=== PATIENT | male | born 1940 | race Caucasian/White ===

== ENCOUNTER 2018-09-07 09:25 | Emergency (ER) | payer MEDICARE ==
[~2018-09-07] VITALS: Ht 170.2 cm; Wt 70.2 kg
[2018-09-07 10:00] VITALS: Ht 170.2 cm; Wt 70.2 kg
[2018-09-07] MEDS ORDERED: DEXAMETHASONE 4 MG/ML 1 ML INJ IV ONE (11:00)
[2018-09-07] MEDS ORDERED: DIPHENHYDRAMINE 50 MG INJ IV ONE (11:00)
[2018-09-07] MEDS ORDERED: METOCLOPRAMIDE 10 MG INJ IV ONE (11:00)
--- NOTE | 2018-09-07 12:16 | ERD ---
ER Documentation Chief Complaint Chief Complaint C/O HEADACHE, DIZZINESS FOR A WEEK, LAST NIGHT HEAVY NOSE BLEED HPI This is a 77-year-old male presents to the ER for evaluation of a headache and slight dizziness for 1 week. The patient states that he did have a nosebleed last night. The patient denies being on any medications denies being on any blood thinners denies any chest pain or shortness of breath or nausea or vomiting and came to the emergency room today for evaluation of his symptoms. The patient states that he is not had any bleeding since he woke up this morning. ROS All systems reviewed and are negative except as per history of present illness. Medications Home Meds No Active Prescriptions or Reported Meds Allergies Allergies: Coded Allergies: No Known Allergy (Unverified , 09/07/18) PMhx/Soc Medical and Surgical Hx: pt denies Medical Hx History of Surgery: Yes (FOOT) Anesthesia Reaction: No Hx Neurological Disorder: No Hx Respiratory Disorders: No Hx Cardiac Disorders: No Hx Psychiatric Problems: No Hx Miscellaneous Medical Probl: No Hx Alcohol Use: No Hx Substance Use: No Hx Tobacco Use: No Smoking Status: Never smoker Physical Exam Vitals Vital Signs Date Temp Pulse Resp B/P (MAP) Pulse Ox O2 O2 Flow FiO2 Time Delivery Rate 09/07/18 98.6 64 18 121/63 98 10:00 (82) Physical Exam Const: No acute distress Head: Atraumatic Eyes: Normal Conjunctiva ENT: Normal External Ears, Nose and Mouth. Neck: Full range of motion. No meningismus. Resp: Clear to auscultation bilaterally Cardio: Regular rate and rhythm, no murmurs Abd: Soft, non tender, non distended. Normal bowel sounds Skin: No petechiae or rashes Back: No midline or flank tenderness Ext: No cyanosis, or edema Neur: Awake and alert Psych: Normal Mood and Affect Result Diagram: 09/07/18 1121 09/07/18 1121 Results 24 hrs Laboratory Tests Test 09/07/18 11:21 White Blood Count 5.5 10^3/ul Red Blood Count 5.02 10^6/ul Hemoglobin 15.7 g/dl Hematocrit 46.5 % Mean Corpuscular Volume 92.6 fl Mean Corpuscular Hemoglobin 31.3 pg Mean Corpuscular Hemoglobin Concent 33.8 g/dl Red Cell Distribution Width 13.7 % Platelet Count 264 10^3/UL Mean Platelet Volume 9.7 fl Immature Granulocytes % 0.200 % Neutrophils % 61.5 % Lymphocytes % 27.3 % Monocytes % 8.4 % Eosinophils % 2.0 % Basophils % 0.6 % Nucleated Red Blood Cells % 0.0 /100WBC Immature Granulocytes # 0.010 10^3/ul Neutrophils # 3.4 10^3/ul Lymphocytes # 1.5 10^3/ul Monocytes # 0.5 10^3/ul Eosinophils # 0.1 10^3/ul Basophils # 0.0 10^3/ul Nucleated Red Blood Cells # 0.0 10^3/ul Prothrombin Time 13.1 Sec Prothrombin Time Ratio 1.0 INR International Normalized Ratio 0.98 Activated Partial Thromboplast Time 28.8 Sec Sodium Level 142 mmol/L Potassium Level 4.0 mmol/L Chloride Level 109 mmol/L Carbon Dioxide Level 27 mmol/L Anion Gap 6 Blood Urea Nitrogen 16 mg/dl Creatinine 0.75 mg/dl Est Glomerular Filtrat Rate mL/min mL/min Glucose Level 103 mg/dl Calcium Level 9.6 mg/dl Troponin I < 0.012 ng/ml Current Medications Medications Dose Sig/Patricio Start Time Status Last (Trade) Ordered Route PRN Stop Time Admin Dose Reason Admin 5 mg ONCE ONCE 09/07/18 DC 09/07/18 Metoclopramid IV 11:00 11:18 e HCl 09/07/18 11:01 (Reglan) 4 mg ONCE ONCE 09/07/18 DC 09/07/18 Dexamethasone IV 11:00 11:18 (Decadron) 09/07/18 11:01 25 mg ONCE ONCE 09/07/18 DC 09/07/18 Diphenhydrami IV 11:00 11:18 ne HCl 09/07/18 11:01 (Benadryl) Procedures/MDM CT brain without: No acute abnormality EKG: Rate/Rhythm: [Normal Sinus Rhythm] QRS, ST, T-waves: [No changes consistent w/ acute ischemia] Impression: [No evidence of ischemia or arrhythmia] This 77-year-old male presents to the ER for evaluation of a headache and slight dizziness for 1 week. On my exam the patient is alert and oriented to person place and time, he has no focal neurological deficits, is ambulate without difficulty and stable. The patient's CT the brain is normal shows no signs of intraconal hemorrhage or no signs of severe sinus infection. This patient's lab work is within normal limits including an EKG and troponin. The patient was advised that he can follow-up as an outpatient given his hemodynamic stability. The patient will be discharged with a referral for outpatient ENT and strict return precautions. The patient does feel comfortable with the plan of care and will be discharged. Departure Diagnosis: Primary Impression: Headache Additional Impression: Epistaxis Condition: Stable GABE CALDERON DO Sep 07, 2018 12:16
[2018-09-07 13:44] VITALS: BP 109/60; PULSE 58; RESP 20
== END 2018-09-07 13:46 | disposition home or self-care (01) ==
LOC: E/R 09:25
DX: R51 Headache (principal); R40.2142 Coma scale, eyes open, spontaneous, at arrival to emergency department; R40.2362 Coma scale, best motor response, obeys commands, at arrival to emergency department; R40.2252 Coma scale, best verbal response, oriented, at arrival to emergency department; R04.0 Epistaxis; R42 Dizziness and giddiness
CPT/HCPCS: 36415; 70450; 80048; 84484; 85025; 85610; 85730; 96374; 96375; 99285; J1100; J1200; J2765